=== PATIENT | male | born 1985 | race Caucasian/White ===

== ENCOUNTER 2020-08-06 14:35 | Inpatient (IN) | payer BC, OTHER ==
[~2020-08-06] VITALS: Ht 185.4 cm; Wt 101.7 kg
[2020-08-06 16:48] VITALS: BP 128/82
[2020-08-06] MEDS ORDERED: ESCI5TAB12 PO (17:01)
[2020-08-06] MEDS ORDERED: INDO20CA4 PO (17:01)
[2020-08-06] MEDS ORDERED: DOXY100C2 PO (17:01)
[2020-08-06] MEDS ORDERED: LEVO100T7 PO (17:01)
[2020-08-06] MEDS ORDERED: SLF500T PO (17:01)
[2020-08-06] MEDS ORDERED: PIPERACILLIN/TAZO 4.5 GM/NS 100 ML IV NR ×2 (17:15)
[2020-08-06] MEDS ORDERED: PATIENT MAY USE OWN MEDS, ALL MC SCH (17:15)
[2020-08-06] MEDS ORDERED: ACETAMINOPHEN 500 MG TAB (TYLENOL) PO PRN (17:30)
[2020-08-06] MEDS ORDERED: VANCOMYCIN 2000 MG/NS 500 ML IVPB IV NR ×2 (17:30)
[2020-08-06] MEDS ORDERED: VANCOMYCIN INJECTION 0.1 MG in NS (IVPB) 250 ML IV SCH (18:00)
[2020-08-06 18:19] LABS: BUN/CREATININE RATIO 22; CALCIUM 8.5 MG/DL (8.5-10.1); CARBON DIOXIDE 18 MMOL/L (21-32); CHLORIDE 106 MMOL/L (98-107); CREATININE SERUM 0.86 MG/DL (0.60-1.30); GFR ESTIMATED > 60; GLUCOSE 104 MG/DL (70-105); POTASSIUM 3.9 MMOL/L (3.6-5.0); SODIUM 136 MMOL/L (135-145)
--- NOTE | 2020-08-06 18:32 | NUR ---
CR 0.86; CR CL > 60; WT 101.7 KG; VANCO 2000 MG IV BOLUS THEN 1250 MG IV Q8H; TROUGH AFTER 3RD DOSE
[2020-08-06 19:37] VITALS: BP 136/42
[2020-08-06] MEDS: sulfaSALAzine 500 MG (AZULFIDINE) TAB PO SCH ×2 (21:23→21:30)
[2020-08-06] MEDS: INDOMETHACIN 50 MG CAPSULE PO SCH (21:23)
[2020-08-07] VITALS (7 sets, daily range): BP systolic 106–129; BP diastolic 56–75
[2020-08-07] MEDS: PIPERACILLIN/TAZOBACTAM (BULK) 4.5 GM in NS (IVPB) 100 ML IV SCH ×4 (00:03→23:45)
[2020-08-07] MEDS: VANCOMYCIN 1250 MG/NS 250 ML IVPB IV SCH ×6 (02:21→18:05)
[2020-08-07] MEDS: LEVOTHYROXINE 100 MCG (LEVOTHROID) TAB PO SCH (05:20)
[2020-08-07] MEDS: sulfaSALAzine 500 MG (AZULFIDINE) TAB PO SCH (07:56)
[2020-08-07] MEDS: INDOMETHACIN 50 MG CAPSULE PO SCH ×3 (07:56→18:06)
[2020-08-07] MEDS: ESCITALOPRAM 10 MG TAB PO SCH (08:02)
--- NOTE | 2020-08-07 08:41 | History & Physical-Hospitalist ---
History of Present Illness HPI/Chief Complaint Kiet presented to the clinic due to concerns related to concerns of a possible insect bite to his right thumb. He had went on vacation and upon returning home he was doing yard work and felt like he got a but bite on 08/03/20. It was initially pruritic but denied pain. On 08/05/20 he noted that the bite had changed in appearance and was no longer prurutic but was painful with surrounding erythema. he also noted white pustules and had a subjective fever that NOC. He was diagnosed with cellulitis with ascending lymphangitis and started on Doxycyline. He was also told to hold his Cosentyx injection until resolved. He returned to the clinic the next day with worsening lymphangitis and axillary lymphadenopathy and pain. He also had a fever of 99.0 in the office but denied chills or rigors. Date Seen 08/07/20 Time Seen by a Provider: 14:00 Attending Physician Bryant Alvarez MD PCP Referring Physician Date of Admission Aug 06, 2020 at 16:14 Home Medications & Allergies Home Medications Reviewed patient Home Medication Reconciliation performed by pharmacy medication reconciliations flight technician and/or nursing. Patients Allergies have been reviewed. Allergies Allergies Coded Allergies No Known Drug Allergies (Unverified08/06/20) Past [id number]-Dwzskh Hx Past Med/Social Hx: Reviewed and Corrections made Patient Social History Marrital Status: Employed/Student: employed Alcohol Use: Denies Use Recreational Drug Use: No Smoking Status: Never a Smoker Physical Abuse Screen: No Sexual Abuse: No Recent Foreign Travel: No Contact w/other who traveled: No Recent Hopitalizations: No Recent Infectious Disease Expo: No Immunizations Up To Date Pediatric: Yes Seasonal Allergies Seasonal Allergies: Yes Past Medical History Currently Using CPAP: No Currently Using BIPAP: No Loss of Vision: Denies Hearing Impairment: Denies Psychosocial: Anxiety Skin/Integumentary: Psoriasis History of Blood Disorders: No Adverse Reaction to Blood Joseph: No Family History Lupus 19 MOTHER Review of Systems Constitutional: see HPI Physical Exam Physical Exam Vital Signs Capillary Refill : Less Than 3 Seconds Height, Weight, BMI Height: '" Weight: lbs. oz. kg; 28.10 BMI Method: General Appearance: No Apparent Distress Eyes: Bilateral Eye Normal Inspection Neck: Normal Inspection, Non Tender, Supple Respiratory: Lungs Clear, Normal Breath Sounds, No Respiratory Distress Cardiovascular: Regular Rate, Rhythm, No Edema, Normal Peripheral Pulses Gastrointestinal: Normal Bowel Sounds, Non Tender, Soft Rectal: Deferred Extremity: Normal Capillary Refill, Normal Inspection, Normal Range of Motion, Non Tender, No Calf Tenderness, No Pedal Edema, Inflammation, Swelling, Other (right thumb with 1cm pustule to MCP, surrounding erythema) Neurologic/Psychiatric: Alert, Oriented x3, No Motor/Sensory Deficits, Normal Mood/Affect, product planner II-XII Norm as Tested Skin: Erythema Lymphatic: Axilla Node Tender (R) Results Results/Procedures Labs Patient resulted labs reviewed. Assessment/Plan Admission Diagnosis 1. Right upper extremity cellulitis with ascending lymphangitis. 2. Failure of outpatient antibiotics. 3. Psoriasis with psoriatic arthritis continue indomethacin and sulfasalazine. Patient was scheduled for Cosentyx earlier this week but medication was held due to infection. Admission Status: Inpatient Order (span 2 midnights) Reason for Inpatient Admission: see admission diagnosis Clinical Quality Measures DVT/VTE Risk/Contraindication: Risk Factor Score Per Nursin RFS Level Per Nursing on Admit: 1=Low/No VTE PPX BRYANT ALVARZE MD Aug 07, 2020 08:40
[2020-08-07 09:03] LABS: BASOPHILS % (AUTO) 0 % (0-10); EOSINOPHILS # (AUTO) 0.1 10^3/uL (0.0-0.3); EOSINOPHILS % (AUTO) 6 % (0-10); HEMATOCRIT 33 % (40-54); HEMOGLOBIN 10.7 G/DL (13.3-17.7); LYMPHOCYTES # (AUTO) 0.7 X 10^3 (1.0-4.0); LYMPHOCYTES % (AUTO) 76 % (12-44); MEAN CORPUSCULAR HEMOGLOBIN 29 PG (25-34); MEAN CORPUSCULAR HGB CONC 33 G/DL (32-36); MEAN CORPUSCULAR VOLUME 90 FL (80-99); MEAN PLATELET VOLUME 8.5 FL (7.4-10.4); MONOCYTES # (AUTO) 0.1 X 10^3 (0.0-1.0); MONOCYTES % (AUTO) 15 % (0-12); NEUTROPHILS % (AUTO) 3 % (42-75); PLATELET COUNT 184 10^3/uL (130-400)
[2020-08-07 09:10] LABS: WHITE BLOOD COUNT 0.9 10^3/uL (4.3-11.0)
--- NOTE | 2020-08-07 10:00 | NUR ---
Dr. Escobar notified of critical lab, white blood cell count 0.9, no new orders at this time.
--- NOTE | 2020-08-07 10:34 | Progress Note - Hospitalist ---
Subjective HPI/CC On Admission Date Seen by Provider: Aug 07, 2020 Time Seen by Provider: 10:33 Subjective/Events-last exam Pt reports doing well. Skin still sensitive to touch but redness improving. Still some edema. Objective Exam Vital Signs Vital Signs Date Time Temp Pulse Resp B/P (MAP) Pulse Ox O2 Delivery O2 Flow Rate FiO2 08/07/20 20:39 36.6 83 18 124/75 (91) 99 Room Air Capillary Refill : Less Than 3 Seconds General Appearance: No Apparent Distress, WD/WN Respiratory: No Accessory Muscle Use, No Respiratory Distress Extremity: Other (right hand) Neurologic/Psychiatric: Alert, Oriented x3, Normal Mood/Affect Results/Procedures Lab Laboratory Tests 08/07/20 08:50 Patient resulted labs reviewed. Assessment/Plan Assessment and Plan Assess & Plan/Chief Complaint 1. Right upper extremity cellulitis with ascending lymphangitis- continue on IV abx, continue broad spectrum given immunesuppressant use 2. Failure of outpatient antibiotics 3. Psoriasis with psoriatic arthritis continue indomethacin and sulfasalazine. Patient was scheduled for Cosentyx, will continue to hold 4. Leukopenia- Will confer with Dr Escobar for a baseline 5. Hypothyroidims- continue home meds Diagnosis/Problems Diagnosis/Problems (1) Right arm cellulitis Clinical Quality Measures DVT/VTE Risk/Contraindication: Risk Factor Score Per Nursin RFS Level Per Nursing on Admit: 1=Low/No VTE PPX HOLLY ANN MD Aug 07, 2020 10:34
[2020-08-07] MEDS ORDERED: CETI10TA49 PO (15:16)
[2020-08-07] MEDS ORDERED: SECU150P SC (15:16)
[2020-08-07] MEDS ORDERED: FLUT9.9S NS (15:16)
[2020-08-07] MEDS ORDERED: INDO50CA82 PO (15:16)
[2020-08-07] MEDS ORDERED: ESCI10TA55 PO (15:16)
[2020-08-07] MEDS ORDERED: MUPI22OI2 TOP (15:16)
--- NOTE | 2020-08-07 15:20 | NUR ---
SPOKE WITH THE PT AND WENT THRU THE EXT MED HISTORY TO COMPLETE THE MED REC PT IS NO LONGER TAKING LOSARTAN 100MG (LAST FILLED 03-27-2020 #90) OTC MEDS: ZYRTEC TONYE
[2020-08-07] MEDS ORDERED: TROUGH ORDER-PHARMACY XX NR (17:00)
[2020-08-07] MEDS: MICONAZOLE 2% POWDER (DESENEX AF) 90 GM TOP SCH (19:35)
[2020-08-08] MEDS: VANCOMYCIN 1250 MG/NS 250 ML IVPB IV SCH ×6 (01:47→18:56)
[2020-08-08 05:46] LABS: BASOPHILS % (AUTO) 1 % (0-10); EOSINOPHILS # (AUTO) 0.1 10^3/uL (0.0-0.3); EOSINOPHILS % (AUTO) 6 % (0-10); HEMATOCRIT 32 % (40-54); HEMOGLOBIN 10.3 G/DL (13.3-17.7); LYMPHOCYTES # (AUTO) 1.1 X 10^3 (1.0-4.0); LYMPHOCYTES % (AUTO) 59 % (12-44); MEAN CORPUSCULAR HEMOGLOBIN 29 PG (25-34); MEAN CORPUSCULAR HGB CONC 32 G/DL (32-36); MEAN CORPUSCULAR VOLUME 90 FL (80-99); MEAN PLATELET VOLUME 8.5 FL (7.4-10.4); MONOCYTES # (AUTO) 0.4 X 10^3 (0.0-1.0); MONOCYTES % (AUTO) 22 % (0-12); NEUTROPHILS # (AUTO) 0.2 X 10^3 (1.8-7.8); NEUTROPHILS % (AUTO) 12 % (42-75); PLATELET COUNT 233 10^3/uL (130-400); WHITE BLOOD COUNT 1.8 10^3/uL (4.3-11.0)
[2020-08-08] MEDS: LEVOTHYROXINE 100 MCG (LEVOTHROID) TAB PO SCH (06:15)
[2020-08-08 06:58] LABS: ATYPICAL LYMPHOCYTES 4 %; BAND NEUTROPHILS 4 %; BLAST CELLS 4 %; EOSINOPHILS % (MANUAL) 4 %; LYMPHOCYTES % (MANUAL) 64 %; MONOCYTES % (MANUAL) 16 %; NEUTROPHILS % (MANUAL) 8 %
[2020-08-08 06:59] LABS: ANISOCYTOSIS SLIGHT; HYPOCHROMASIA MODERATE; ROULEAUX SLIGHT
[2020-08-08 08:00] VITALS: BP 119/65
[2020-08-08] MEDS: PIPERACILLIN/TAZOBACTAM (BULK) 4.5 GM in NS (IVPB) 100 ML IV SCH ×3 (08:16→23:52)
[2020-08-08] MEDS: ESCITALOPRAM 10 MG TAB PO SCH (08:17)
[2020-08-08] MEDS: INDOMETHACIN 50 MG CAPSULE PO SCH ×3 (08:17→18:56)
[2020-08-08] MEDS: MICONAZOLE 2% POWDER (DESENEX AF) 90 GM TOP SCH ×2 (10:45→21:07)
--- NOTE | 2020-08-08 11:21 | Progress Note - Hospitalist ---
Subjective HPI/CC On Admission Date Seen by Provider: Aug 08, 2020 Time Seen by Provider: 11:14 Subjective/Events-last exam Patient reports doing ok but having more swelling in his hand today. Erythema of the arm has improved. Objective Exam Vital Signs Vital Signs Date Time Temp Pulse Resp B/P (MAP) Pulse Ox O2 Delivery O2 Flow Rate FiO2 08/08/20 08:00 36.4 75 18 119/65 (83) 99 Room Air Capillary Refill : Less Than 3 Seconds General Appearance: No Apparent Distress, WD/WN Respiratory: No Accessory Muscle Use, No Respiratory Distress Extremity: Other (worsening edema and erythema of the thenar aspect of posterior hand, no drainage) Neurologic/Psychiatric: Alert, Oriented x3, Normal Mood/Affect Results/Procedures Lab Laboratory Tests 08/08/20 05:37 Patient resulted labs reviewed. Assessment/Plan Assessment and Plan Assess & Plan/Chief Complaint 1. Right upper extremity cellulitis with ascending lymphangitis- continue on IV abx, continue broad spectrum given immunesuppressant use; concerned that abscessed has formed. Consulted surgery to evaluate for possible abscess 2. Failure of outpatient antibiotics 3. Psoriasis with psoriatic arthritis continue indomethacin. Patient was scheduled for Cosentyx, will continue to hold 4. Leukopenia- baseline a few months ago was 3.5, up to 1.9 today, continue to hold Cosentyx and sulfasazine 5. Hypothyroidism- continue home meds Diagnosis/Problems Diagnosis/Problems (1) Right arm cellulitis Status: Acute Clinical Quality Measures DVT/VTE Risk/Contraindication: Risk Factor Score Per Nursin RFS Level Per Nursing on Admit: 1=Low/No VTE PPX HOLLY ANN MD Aug 08, 2020 11:21
[2020-08-08] MEDS ORDERED: LIDOCAINE 1% INJ 20 ML 20 ML VIAL INJ ONE (11:30)
[2020-08-08] MEDS ORDERED: fentaNYL INJECTION 100 MCG/2 ML AMP ONE (11:32)
[2020-08-08] MEDS ORDERED: fentaNYL INJECTION 100 MCG/2 ML AMP IVP PRN ×2 (11:45→12:15)
--- NOTE | 2020-08-08 12:31 | CONSULTATION REPORT ---
DATE OF SERVICE: 08/08/2020 ATTENDING PRIMARY CARE PHYSICIAN: Dr. Speedy Escobar. HISTORY OF PRESENT ILLNESS: The patient is a 34-year-old male who presents with a classic case of a brown recluse spider bite. He reports that approximately 1 week ago, [place] and went to attend to his daughter and then he felt an area of slight redness and erythema along the dorsal aspect of the right hand close to the first metacarpophalangeal joint. He did not think much of it; however, this was significantly pruritic. He states that a blister draining a small amount of drainage then did develop and he also developed fevers and chills and he was seen by his physician and started on oral antibiotics; however, this persisted and was again seen and admitted and started on IV antibiotics. Since being admitted, he has had a slight worsening of redness, erythema along the dorsal aspect as well as a fluctuance, which may indicate an abscess formation as well as the possibility of the effects of the liquefactive necrosis from the recluse venom. Upon examination, there is redness, erythema as well as fluctuance overlying the dorsal aspect of the thenar eminence. PAST MEDICAL HISTORY: Plaque psoriasis. PAST SURGICAL HISTORY: Laparoscopic cholecystectomy, tonsillectomy. ALLERGIES: No known drug allergies. MEDICATIONS: Cosentyx monthly. SOCIAL HISTORY: Negative smoke, negative alcohol. FAMILY HISTORY: Noncontributory. REVIEW OF SYSTEMS: Well-nourished male in no acute distress. He is not experiencing any shortness of breath or difficulty breathing. No chest pain, palpitations, diaphoresis. No nausea or vomiting. No diarrhea or constipation. No fever or chills. No recent inadvertent weight loss. All other review of systems negative. PHYSICAL EXAMINATION: VITAL SIGNS: Temperature 36.4, blood pressure 119/65, pulse 75, respirations 18, pulse ox 99% on room air. CHEST: Clear. Good breath sounds bilaterally. HEART: Regular, no murmurs. EXTREMITIES: No lower extremity edema, negative Homans sign. HEENT: No scleral icterus. NECK: No cervical lymphadenopathy. ABDOMEN: Soft, nontender, nondistended. SKIN: Along the right dorsal aspect of the right hand, there is an area of dry necrosis as well as redness, edema as well as an area of fluctuance along the dorsal aspect of the hand along the first metacarpal region. ASSESSMENT AND PLAN: A 34-year-old male with abscess secondary to a brown recluse spider bite. We will proceed with an incision and drainage of the abscess as well as continue IV antibiotics to treat the effects of the secondary bacterial infection. Job ID: [id number] DocumentID: [id number] Dictated Date: 08/08/2020 12:13:41 Rfid Developer Date: 08/08/2020 12:30:05 Dictated By: GRACE COOPER MD MTDD
[2020-08-08] MEDS: HYDROcodone/APAP 7.5 MG/325 MG (LORTAB, LORCET PLUS) TABLET PO PRN ×2 (15:49→21:07)
[2020-08-08 16:00] VITALS: BP 116/76
[2020-08-08 19:52] VITALS: BP 113/69
[2020-08-09] VITALS: BP 116/67
--- NOTE | 2020-08-09 00:12 | OPERATIVE REPORT ---
DATE OF SERVICE: 08/08/2020 ATTENDING PRIMARY CARE PHYSICIAN: Dr. Speedy Escobar. PREOPERATIVE DIAGNOSIS: Cellulitis and abscess along the dorsal aspect of the right hand. POSTOPERATIVE DIAGNOSIS: Cellulitis and abscess along the dorsal aspect of the right hand. PROCEDURE: Incision and drainage of abscess, left hand. SURGEON: Grace Cooper MD. ANESTHESIA: Local. ESTIMATED BLOOD LOSS: Minimal. FINDINGS: Necrotic subcutaneous tissue with a significant amount of edema, small abscess. DISPOSITION: The patient tolerated the procedure well. INDICATIONS: The patient is a 34-year-old male who presented with a brown recluse spider bite along the dorsal aspect of the right hand along the first metacarpophalangeal joint. He described the liquefactive necrosis and then eventual fevers and chills and was admitted and placed on IV antibiotics. Since being admitted, there has been increased redness, erythema as well as swelling and fluctuance overlying the dorsal aspect of the right hand, likely consistent with an abscess. DESCRIPTION OF PROCEDURE: The patient's right hand was prepped and draped in standard surgical fashion. 1% lidocaine was used to anesthetize the overlying skin to the abscess. A sigmoid skin incision was then made using a 10 blade through the subcutaneous layers. There was a small abscess; however, the majority of the subcutaneous tissue within the region was slightly necrotic. This was left open to drain. Wound was then packed with sterile gauze followed by Tanya wrap. The patient tolerated the procedure well. We will continue with packing and dressing change starting tomorrow and continue with IV antibiotics. Job ID: [id number] DocumentID: [id number] Dictated Date: 08/08/2020 12:17:03 Personal Property Assessor Date: 08/09/2020 00:11:49 Dictated By: GRACE COOPER MD [facility]
--- NOTE | 2020-08-09 00:51 | CONSULTATION REPORT ---
DATE OF SERVICE: 08/08/2020 The patient is admitted to room 418. PHYSICIAN REQUESTING CONSULTATION: Jazzy King MD IMPRESSION: 1. A 34-year-old male admitted with febrile illness and right hand cellulitis that was not responding to outpatient antibiotic therapy. 2. Significant leukopenia and neutropenia of undetermined etiology. 3. Probable brown recluse spider bite with the central necrosis, status post incision and drainage today. 4. History of significant plaque psoriasis and psoriatic arthritis, on treatment with sulfasalazine and Cosentyx. RECOMMENDATIONS: 1. Continue broad-spectrum antibiotics as you are doing. 2. Monitor blood count serially. His leukocyte count and neutrophil count has improved compared to yesterday. He has mild anemia and hemoglobin is holding stable. If there is evidence of hemolytic anemia, he will need transfusion support. Hemolytic anemia is unknown, but rare complication of brown recluse spider bite. 3. We will follow the patient with you. HISTORY OF PRESENT ILLNESS: The patient is a 34-year-old male, who complained of an insect bite last week while [place]. During his visit, he did go into a shed looking at and other less frequented areas of the house. Later on that evening, he complained of itching on the right hand. By the next day, he noticed a red area with 2 puncture [place] on the right hand that was pruritic. By Tuesday evening, he was having chills and fever and saw his primary physician and was started on oral antibiotic on an outpatient basis. He continued to have fevers and chills intermittently, which was worsening and reddish streaks were noted on the right hand and forearm extending into the arm. Because of this, he was admitted to the hospital for parenteral antibiotic therapy and further management. At the time of admission, he was noted to have significant leukopenia and neutropenia and a hematology consultation was requested. PAST MEDICAL HISTORY: Significant for plaque psoriasis, which is fairly significant. He was treated with multiple immunosuppressive agents including Humira and more recently Cosentyx, which was being used for several years now. He was due for a dose earlier this week, but this was held because of the febrile illness. He also has psoriatic arthritis involving his hands. PAST SURGICAL HISTORY: Include a tonsillectomy and adenoidectomy in childhood and the laparoscopic cholecystectomy. ALLERGIES: He has no known drug allergies. MEDICATIONS: Cosentyx monthly. SOCIAL HISTORY: The patient is and has a 1-year biological son and they just adopted 4 children ranging in age from 7 through 2 years within the last month. He lives in [place] with his and children. 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 No history of tobacco, alcohol or recreational drug use. FAMILY HISTORY: Unremarkable with no major medical problems in the family that the patient knows of. PHYSICAL EXAMINATION: GENERAL: Today showed young male, well developed and nourished, awake and oriented, in no acute distress. VITAL SIGNS: His temperature was 36.8, pulse rate of 82, respirations 20, blood pressure 116/76 with oxygen saturation of 97% on room air. HEENT: Normocephalic, extraocular muscles intact, conjunctivae pink, oral mucosa moist without lesions. NECK: Supple, with no JVD. No cervical or supraclavicular lymphadenopathy palpable. The patient had tenderness in the right axilla with a borderline enlarged lymph nodes. CHEST: Symmetrical. LUNGS: Clear to auscultation without wheezes or rales. CARDIOVASCULAR: Regular in rate and rhythm without murmurs or gallops. ABDOMEN: Soft, nontender with no hepatosplenomegaly or other masses palpable. EXTREMITIES: Showed a right hand in dressing with the serosanguineous drainage. There are reddish streaks along the ventral aspect of right forearm into the axilla, the borders of which have been marked with a pen. Lower extremities showed no edema. NEUROLOGIC: Grossly intact without focal motor deficits. LABORATORY DATA: CBC done on 08/07/2020 showed WBC 0.9, hemoglobin 10.7, platelet count 184,000 with neutrophil count 0.0 and lymphocyte count 0.7. CBC repeated today morning showed WBC 1.8, hemoglobin 10.3 with MCV 90, platelet count 233,000 and neutrophil count 0.2, lymphocyte count 1.1 and monocyte count 0.4. I reviewed the peripheral smear done today, which showed a decreased white blood cell count. Neutrophils appeared unremarkable morphologically and has toxic granulation. No immature cells were identified. The red blood cells appeared normal morphologically with no significant schistocytes noted. Platelets were normal in number and morphology. Chemistry panel done yesterday showed relatively normal electrolytes. BUN was 19 and creatinine 0.86 with GFR more than 60 mL per minute. Thank you for allowing me to participate in this patient's care. I will follow the patient with you and make appropriate recommendations. Job ID: [id number] DocumentID: [id number] Dictated Date: 08/08/2020 17:18:36 Panel Instrument Repairer Date: 08/09/2020 00:51:30 Dictated By: TY TORRES MD
[2020-08-09] MEDS: VANCOMYCIN 1250 MG/NS 250 ML IVPB IV SCH ×4 (02:35→09:35)
[2020-08-09] MEDS: LEVOTHYROXINE 100 MCG (LEVOTHROID) TAB PO SCH (06:27)
[2020-08-09 07:48] VITALS: BP 118/74
[2020-08-09] MEDS: PIPERACILLIN/TAZOBACTAM (BULK) 4.5 GM in NS (IVPB) 100 ML IV SCH (08:00)
[2020-08-09] MEDS: INDOMETHACIN 50 MG CAPSULE PO SCH ×3 (08:00→17:32)
[2020-08-09] MEDS: ESCITALOPRAM 10 MG TAB PO SCH (09:35)
[2020-08-09] MEDS: MICONAZOLE 2% POWDER (DESENEX AF) 90 GM TOP SCH ×2 (09:35→20:21)
[2020-08-09 10:09] LABS: BASOPHILS % (AUTO) 1 % (0-10); EOSINOPHILS # (AUTO) 0.1 10^3/uL (0.0-0.3); EOSINOPHILS % (AUTO) 4 % (0-10); HEMATOCRIT 31 % (40-54); HEMOGLOBIN 9.9 G/DL (13.3-17.7); LYMPHOCYTES # (AUTO) 0.8 X 10^3 (1.0-4.0); LYMPHOCYTES % (AUTO) 30 % (12-44); MEAN CORPUSCULAR HEMOGLOBIN 29 PG (25-34); MEAN CORPUSCULAR HGB CONC 32 G/DL (32-36); MEAN CORPUSCULAR VOLUME 90 FL (80-99); MEAN PLATELET VOLUME 9.1 FL (7.4-10.4); MONOCYTES # (AUTO) 0.5 X 10^3 (0.0-1.0); MONOCYTES % (AUTO) 20 % (0-12); NEUTROPHILS # (AUTO) 1.2 X 10^3 (1.8-7.8); NEUTROPHILS % (AUTO) 46 % (42-75); PLATELET COUNT 283 10^3/uL (130-400); WHITE BLOOD COUNT 2.7 10^3/uL (4.3-11.0)
--- NOTE | 2020-08-09 11:02 | Progress Note - Hospitalist ---
Subjective HPI/CC On Admission Date Seen by Provider: Aug 09, 2020 Time Seen by Provider: 10:56 Subjective/Events-last exam patient reports decreased hand and right axillary pain. He can move his arm without any axillary discomfort. He denies night sweats chills or fever. Objective Exam Vital Signs Vital Signs Date Time Temp Pulse Resp B/P (MAP) Pulse Ox O2 Delivery O2 Flow Rate FiO2 08/09/20 08:00 Room Air 08/09/20 07:48 36.3 58 18 118/74 (89) 97 Capillary Refill : Less Than 3 Seconds General Appearance: No Apparent Distress Respiratory: Chest Non Tender, Lungs Clear, Normal Breath Sounds, No Accessory Muscle Use, No Respiratory Distress Cardiovascular: Regular Rate, Rhythm, No Edema, No Gallop, No JVD, No Murmur, Normal Peripheral Pulses Extremity: Other (right hand swelling persists but there is resolution of erythema involving the forearm and upper arm. There are still some mild axillary tenderness and fullness but no evidence for abscess and the patient can move the arm with minimal discomfort and improvement from yesterday) Results/Procedures Lab Laboratory Tests 08/09/20 09:23 Patient resulted labs reviewed. Assessment/Plan Assessment and Plan Assess & Plan/Chief Complaint A/P 1. Right hand cellulitis with ascending lymphangitis responding to broad spectrum antibiotic coverage. Office wound swab of a pustular area revealed moderate growth of Streptococcus pyogenes which is compatible with clinical picture. Doubt spider bite. 2. Neutropenia possibly sulfasalazine related we'll continue to hold neutropenia secondary to infection possible as well white count is recovering with ANC count up to 1.2 thousand and no reported increase in blasts makes leukemia less likely we'll continue to monitor daily counts. Will switch to IV Ancef considering number 1. Clinical Quality Measures DVT/VTE Risk/Contraindication: Risk Factor Score Per Nursin RFS Level Per Nursing on Admit: 1=Low/No VTE PPX BRYANT ALVAREZ MD Aug 09, 2020 11:02
[2020-08-09] MEDS: HYDROcodone/APAP 7.5 MG/325 MG (LORTAB, LORCET PLUS) TABLET PO PRN ×2 (11:17→23:19)
[2020-08-09 11:27] LABS: BAND NEUTROPHILS 0 %; BASOPHILS % (MANUAL) 0 %; EOSINOPHILS % (MANUAL) 6 %; LYMPHOCYTES % (MANUAL) 32 %; MONOCYTES % (MANUAL) 22 %; NEUTROPHILS % (MANUAL) 40 %; RBC MORPH NORMAL
--- NOTE | 2020-08-09 12:00 | NUR ---
THIS RN NOTIFIED BY PCT THAT PT HAD REQUESTED TO SPEAK WITH DR. ALVAREZ ABOUT BEING ABLE TO GO DOWN TO THE PARKING LOT TO SEE HIS DOG BEFORE HIS DOG IS EUTHANIZED. THIS RN SPOKE WITH DR. ALVAREZ ABOUT THE MATTER AND DR. ALVAREZ STATED THAT THE PT IS ABLE TO SEE HIS DOG BEFORE EUTHANIZATION BUT TO REFRAIN FROM COMING INTO CONTACT FROM ANYBODY.
--- NOTE | 2020-08-09 12:07 | Progress Note ---
Subjective Date Seen by a Provider: Aug 09, 2020 Time Seen by a Provider: 11:00 Subjective/Events-last exam Patient seen with Dr. Reyes. Patient reports pain is better today. Denies any fever or chills. Tolerating diet with nausea or vomiting. Objective Exam Vital Signs Date Time Temp Pulse Resp B/P (MAP) Pulse Ox O2 Delivery O2 Flow Rate FiO2 08/09/20 08:00 Room Air 08/09/20 07:48 36.3 58 18 118/74 (89) 97 Room Air 08/09/20 00:00 36.5 66 18 116/67 (83) 97 Room Air 08/08/20 20:00 Room Air 08/08/20 19:52 36.4 78 18 113/69 (84) 97 Room Air 08/08/20 16:00 36.8 82 20 116/76 (89) 97 Room Air l I & O 08/09/20 07:00 Intake Total 2360 ml Balance 2360 ml Capillary Refill : Less Than 3 Seconds General Appearance: No Apparent Distress, WD/WN Neck: Full Range of Motion, Normal Inspection Respiratory: Normal Breath Sounds, No Accessory Muscle Use, No Respiratory Distress Cardiovascular: Regular Rate, Rhythm, No Edema Gastrointestinal: normal bowel sounds, non tender, soft Extremity: Normal Capillary Refill, Normal Range of Motion, Other (Right hand dorsal aspect open incision with good granulation tissue within wound bed. Mild localized erythema and edema, tender upon palpation) Neurologic/Psychiatric: Alert, Oriented x3 Skin: Normal Color, Warm/Dry Results Lab Laboratory Tests 08/09/20 09:23: White Blood Count 2.7L, Red Blood Count 3.39L, Hemoglobin 9.9L, Hematocrit 31L, Mean Corpuscular Volume 90, Mean Corpuscular Hemoglobin 29, Mean Corpuscular Hemoglobin Concent 32, Red Cell Distribution Width 13.3, Platelet Count 283, Mean Platelet Volume 9.1, Neutrophils (%) (Auto) 46, Lymphocytes (%) (Auto) 30, Monocytes (%) (Auto) 20H, Eosinophils (%) (Auto) 4, Basophils (%) (Auto) 1, Neutrophils # (Auto) 1.2L, Lymphocytes # (Auto) 0.8L, Monocytes # (Auto) 0.5, Eosinophils # (Auto) 0.1, Basophils # (Auto) 0.0, Neutrophils % (Manual) 40, Lymphocytes % (Manual) 32, Monocytes % (Manual) 22, Eosinophils % (Manual) 6, Basophils % (Manual) 0, Band Neutrophils 0, Blood Morphology Comment NORMAL Assessment/Plan Assessment/Plan Assess & Plan/Chief Complaint Right hand cellulitis and abscess S/P I&D VSS Continue abx and pain meds as needed Continue wet to dry daily dressing change Clinical Quality Measures DVT/VTE Risk/Contraindication: Risk Factor Score Per Nursin RFS Level Per Nursing on Admit: 1=Low/No VTE PPX NATACHA AMEZCUA PIPE CLEANER Aug 09, 2020 12:07
--- NOTE | 2020-08-09 12:37 | Progress Note ---
Standard Progress Note Progress Notes/Assess & Plan Date Seen by a Provider: Aug 09, 2020 Time Seen by a Provider: 12:34 Progress/Assessment & Plan 34-year-old male admitted with right hand insect bite causing cellulitis and failed outpatient antibiotic therapy. Status post I&D of necrotic tissue and parenteral antibiotic therapy. Left forearm streaks are better than yesterday. At the time of admission patient noted to have significant leukopenia and neutropenia of undetermined etiology. Today total white count is 2.7 with ANC of 1.2 which is a significant improvement. Hemoglobin and platelets normal. Continue IV antibiotics and surgical care as you're doing. Repeat CBC tomorrow morning. Will follow patient with you. TY TORRES Aug 09, 2020 12:36
[2020-08-09] MEDS ORDERED: WATER (STERILE) FOR INJECTION 10 ML ONE ×2 (15:03→23:12)
[2020-08-09] MEDS: ceFAZolin INJECTION 1,000 MG VIAL IV SCH ×2 (15:10→23:18)
[2020-08-09 15:30] VITALS: BP 132/58
[2020-08-10] VITALS: BP 131/80
[2020-08-10] MEDS: LEVOTHYROXINE 100 MCG (LEVOTHROID) TAB PO SCH (06:29)
[2020-08-10] MEDS: HYDROcodone/APAP 7.5 MG/325 MG (LORTAB, LORCET PLUS) TABLET PO PRN ×2 (06:32→23:41)
[2020-08-10 08:00] VITALS: BP 121/73
[2020-08-10] MEDS ORDERED: ceFAZolin 1,000 MG/SWFI 10 ML IV PUSH IV SCH ×2 (09:00)
[2020-08-10] MEDS: INDOMETHACIN 50 MG CAPSULE PO SCH ×3 (09:34→17:44)
[2020-08-10] MEDS: ESCITALOPRAM 10 MG TAB PO SCH (09:37)
[2020-08-10] MEDS: MICONAZOLE 2% POWDER (DESENEX AF) 90 GM TOP SCH ×2 (09:38→19:46)
[2020-08-10 10:46] LABS: BASOPHILS # (AUTO) 0.1 10^3/uL (0.0-0.1); BASOPHILS % (AUTO) 1 % (0-10); EOSINOPHILS # (AUTO) 0.1 10^3/uL (0.0-0.3); EOSINOPHILS % (AUTO) 2 % (0-10); HEMATOCRIT 33 % (40-54); HEMOGLOBIN 10.5 G/DL (13.3-17.7); LYMPHOCYTES % (AUTO) 21 % (12-44); MEAN CORPUSCULAR HEMOGLOBIN 29 PG (25-34); MEAN CORPUSCULAR HGB CONC 32 G/DL (32-36); MEAN CORPUSCULAR VOLUME 90 FL (80-99); MEAN PLATELET VOLUME 8.7 FL (7.4-10.4); MONOCYTES # (AUTO) 0.7 X 10^3 (0.0-1.0); MONOCYTES % (AUTO) 14 % (0-12); NEUTROPHILS # (AUTO) 2.9 X 10^3 (1.8-7.8); NEUTROPHILS % (AUTO) 62 % (42-75); PLATELET COUNT 321 10^3/uL (130-400); WHITE BLOOD COUNT 4.7 10^3/uL (4.3-11.0)
[2020-08-10 10:47] LABS: CHLORIDE 106 MMOL/L (98-107); SODIUM 138 MMOL/L (135-145)
[2020-08-10 10:49] LABS: CALCIUM 8.4 MG/DL (8.5-10.1); GLUCOSE 81 MG/DL (70-105)
[2020-08-10 10:50] LABS: CARBON DIOXIDE 23 MMOL/L (21-32)
[2020-08-10 10:53] LABS: CREATININE SERUM 0.96 MG/DL (0.60-1.30); GFR ESTIMATED > 60
[2020-08-10 10:54] LABS: BUN/CREATININE RATIO 16
[2020-08-10 11:37] LABS: BAND NEUTROPHILS 15 %; BASOPHILS % (MANUAL) 0 %; EOSINOPHILS % (MANUAL) 2 %; LYMPHOCYTES % (MANUAL) 19 %; MONOCYTES % (MANUAL) 21 %; NEUTROPHILS % (MANUAL) 36 %
[2020-08-10 11:38] LABS: METAMYELOCYTES % 7 %; RBC MORPH NORMAL
--- NOTE | 2020-08-10 12:26 | Progress Note - Hospitalist ---
Subjective HPI/CC On Admission Date Seen by Provider: Aug 10, 2020 Time Seen by Provider: 12:21 Subjective/Events-last exam patient reports he's not feeling as well today some increase forearm pain and erythema. He denies any axillary pain denies night sweats chills or fever notes a little more throbbing when his right hand is dependent. There is been no bleeding or drainage soaking through the Bandage. Objective Exam Vital Signs Vital Signs Date Time Temp Pulse Resp B/P (MAP) Pulse Ox O2 Delivery O2 Flow Rate FiO2 08/10/20 08:00 36.3 75 20 121/73 (89) 94 Room Air Capillary Refill : Less Than 3 SecondsLess Than 3 Seconds General Appearance: No Apparent Distress Respiratory: Chest Non Tender, Lungs Clear, Normal Breath Sounds, No Accessory Muscle Use, No Respiratory Distress Cardiovascular: Regular Rate, Rhythm, No Edema, No Gallop, No JVD, No Murmur, Normal Peripheral Pulses Extremity: Other (the open hand wound looks clean with no drainage and no significant surrounding erythema or induration. There is increased erythema and swelling of the right forearm with no streaking going up the arm and less axillary pain.) Results/Procedures Lab Laboratory Tests 08/10/20 10:25 Patient resulted labs reviewed. Assessment/Plan Assessment and Plan Assess & Plan/Chief Complaint A/P 1. Right hand cellulitis with ascending lymphangitis after switch to Ancef there is increased erythema in the forearm the patient for she's not feeling as well. His white counts are recovering and up to 4.5 thousand and I suspect this may be the reason however will switch back to Zosyn and DC Ancef. Office wound swab of a pustular area revealed moderate growth of Streptococcus pyogenes which is compatible with clinical picture. Doubt spider bite. 2. Neutropenia resolving after discussion with Dr. Fleming he feels that infection is more likely cause and sulfasalazine will have her continue to hold. Clinical Quality Measures DVT/VTE Risk/Contraindication: Risk Factor Score Per Nursin RFS Level Per Nursing on Admit: 1=Low/No VTE PPX BRYANT ALVAREZ MD Aug 10, 2020 12:26
[2020-08-10] MEDS ORDERED: PIPERACILLIN/TAZOBACTAM (BULK) 4.5 GM in NS (IVPB) 100 ML IV NR (13:00)
[2020-08-10] MEDS ORDERED: KETOROLAC 30 MG/ML VIAL IVP ONE (13:15)
[2020-08-10] MEDS ORDERED: IBUPROFEN 600 MG (MOTRIN) TAB PO PRN (13:15)
--- NOTE | 2020-08-10 13:27 | Progress Note ---
Subjective Date Seen by a Provider: Aug 10, 2020 Time Seen by a Provider: 13:00 Subjective/Events-last exam doing better. wound clean/intact. no new area redness/erythema. no fever/chills. Objective Exam Vital Signs Date Time Temp Pulse Resp B/P (MAP) Pulse Ox O2 Delivery O2 Flow Rate FiO2 08/10/20 08:00 36.3 75 20 121/73 (89) 94 Room Air 08/10/20 08:00 94 Room Air 08/10/20 00:00 36.9 64 18 131/80 (97) 95 Room Air 08/09/20 20:00 Room Air 08/09/20 15:30 36.6 61 18 132/58 (82) 98 Room Air I & O 08/10/20 07:00 Intake Total 1802.5 ml Balance 1802.5 ml Capillary Refill : Less Than 3 SecondsLess Than 3 Seconds General Appearance: No Apparent Distress HEENT: PERRL/EOMI Neck: Full Range of Motion Respiratory: Chest Non Tender, Lungs Clear, Normal Breath Sounds Cardiovascular: Regular Rate, Rhythm Gastrointestinal: normal bowel sounds, non tender, soft Extremity: Normal Capillary Refill, Other (right hand good granulation bed, no new area/redness) Neurologic/Psychiatric: Alert, Oriented x3 Skin: Normal Color Lymphatic: No Adenopathy Results Lab Laboratory Tests 08/10/20 10:25: White Blood Count 4.7, Red Blood Count 3.61L, Hemoglobin 10.5L, Hematocrit 33L, Mean Corpuscular Volume 90, Mean Corpuscular Hemoglobin 29, Mean Corpuscular Hemoglobin Concent 32, Red Cell Distribution Width 13.3, Platelet Count 321, Mean Platelet Volume 8.7, Neutrophils (%) (Auto) 62, Lymphocytes (%) (Auto) 21, Monocytes (%) (Auto) 14H, Eosinophils (%) (Auto) 2, Basophils (%) (Auto) 1, Neutrophils # (Auto) 2.9, Lymphocytes # (Auto) 1.0, Monocytes # (Auto) 0.7, Eosinophils # (Auto) 0.1, Basophils # (Auto) 0.1, Neutrophils % (Manual) 36, Lymphocytes % (Manual) 19, Monocytes % (Manual) 21, Eosinophils % (Manual) 2, Basophils % (Manual) 0, Metamyelocytes % 7, Band Neutrophils 15, Blood Morphology Comment NORMAL, Sodium Level 138, Potassium Level 4.0, Chloride Level 106, Carbon Dioxide Level 23, Anion Gap 9, Blood Urea Nitrogen 15, Creatinine 0.96, Estimat Glomerular Filtration Rate > 60, BUN/Creatinine Ratio 16, Glucose Level 81, Calcium Level 8.4L Assessment/Plan Assessment/Plan Assess & Plan/Chief Complaint cellulitis/skin necrosis s/p I&D. neutropenic from cosyntyx. will be on IV abx until . Clinical Quality Measures DVT/VTE Risk/Contraindication: Risk Factor Score Per Nursin RFS Level Per Nursing on Admit: 1=Low/No VTE PPX GRACE COOPER MD Aug 10, 2020 13:27
[2020-08-10 16:22] VITALS: BP 137/89
[2020-08-10] MEDS: PIPERACILLIN/TAZO 4.5 GM/NS 100 ML IV SCH ×2 (19:46)
[2020-08-11] VITALS: BP 138/88
[2020-08-11] MEDS: PIPERACILLIN/TAZO 4.5 GM/NS 100 ML IV SCH ×6 (04:12→19:52)
[2020-08-11] MEDS: LEVOTHYROXINE 100 MCG (LEVOTHROID) TAB PO SCH (06:22)
[2020-08-11 08:00] VITALS: BP 118/67
--- NOTE | 2020-08-11 08:45 | Progress Note - Hospitalist ---
Subjective HPI/CC On Admission Date Seen by Provider: Aug 11, 2020 Time Seen by Provider: 08:15 Subjective/Events-last exam patient feeling better less arm pain and denies night sweats chills or fever. Objective Exam Vital Signs Vital Signs Date Time Temp Pulse Resp B/P (MAP) Pulse Ox O2 Delivery O2 Flow Rate FiO2 08/11/20 00:00 36.8 56 18 138/88 (105) 97 Room Air Capillary Refill : Less Than 3 SecondsLess Than 3 Seconds General Appearance: No Apparent Distress Respiratory: Chest Non Tender, Lungs Clear, Normal Breath Sounds, No Accessory Muscle Use, No Respiratory Distress Cardiovascular: Regular Rate, Rhythm, No Edema, No Gallop, No JVD, No Murmur, Normal Peripheral Pulses Extremity: Other (decreasing erythema of the right forearm compared to no axillary adenopathy noted minimal discomfort to palpation of the axilla no drainage noted on hand bandage) Results/Procedures Lab Laboratory Tests 08/10/20 10:25 Patient resulted labs reviewed. Assessment/Plan Assessment and Plan Assess & Plan/Chief Complaint A/P 1. Right hand cellulitis with ascending lymphangitis after switch to Ancef there is increased erythema in the forearm the patient for he's not feeling as well. for this reason yesterday he was switched back to Zosyn and doing better. White count pending. For continued improvements will likely plan discharge on Augmentin tomorrow. Doubt spider bite. 2. Neutropenia resolving after discussion with Dr. Fleming he feels that infection is more likely cause than sulfasalazine will continue to hold for now. Clinical Quality Measures DVT/VTE Risk/Contraindication: Risk Factor Score Per Nursin RFS Level Per Nursing on Admit: 1=Low/No VTE PPX BRYANT ALVAREZ MD Aug 11, 2020 08:45
[2020-08-11] MEDS: MICONAZOLE 2% POWDER (DESENEX AF) 90 GM TOP SCH ×2 (09:21→19:52)
[2020-08-11] MEDS: INDOMETHACIN 50 MG CAPSULE PO SCH ×3 (09:21→17:45)
[2020-08-11] MEDS: ESCITALOPRAM 10 MG TAB PO SCH (09:21)
[2020-08-11 09:45] LABS: BASOPHILS # (AUTO) 0.1 10^3/uL (0.0-0.1); BASOPHILS % (AUTO) 2 % (0-10); EOSINOPHILS # (AUTO) 0.1 10^3/uL (0.0-0.3); EOSINOPHILS % (AUTO) 2 % (0-10); HEMATOCRIT 33 % (40-54); HEMOGLOBIN 10.4 G/DL (13.3-17.7); LYMPHOCYTES # (AUTO) 1.4 X 10^3 (1.0-4.0); LYMPHOCYTES % (AUTO) 21 % (12-44); MEAN CORPUSCULAR HEMOGLOBIN 29 PG (25-34); MEAN CORPUSCULAR HGB CONC 32 G/DL (32-36); MEAN CORPUSCULAR VOLUME 91 FL (80-99); MEAN PLATELET VOLUME 8.4 FL (7.4-10.4); MONOCYTES # (AUTO) 0.6 X 10^3 (0.0-1.0); MONOCYTES % (AUTO) 10 % (0-12); NEUTROPHILS # (AUTO) 4.4 X 10^3 (1.8-7.8); NEUTROPHILS % (AUTO) 66 % (42-75); PLATELET COUNT 321 10^3/uL (130-400); WHITE BLOOD COUNT 6.7 10^3/uL (4.3-11.0)
[2020-08-11 10:21] LABS: BAND NEUTROPHILS 20 %; NEUTROPHILS % (MANUAL) 30 %
[2020-08-11 10:22] LABS: ANISOCYTOSIS SLIGHT; ATYPICAL LYMPHOCYTES 2 %; EOSINOPHILS % (MANUAL) 1 %; LYMPHOCYTES % (MANUAL) 24 %; METAMYELOCYTES % 5 %; MONOCYTES % (MANUAL) 16 %; MYELOCYTES % 2 %; NUCLEATED RED BLOOD CELLS 2
[2020-08-11 15:18] VITALS: BP 150/94
--- NOTE | 2020-08-11 16:45 | Progress Note ---
Subjective Date Seen by a Provider: Aug 11, 2020 Time Seen by a Provider: 15:00 Subjective/Events-last exam doing well. wound granulating in well. no new redness/erythema. Objective Exam Vital Signs Date Time Temp Pulse Resp B/P (MAP) Pulse Ox O2 Delivery O2 Flow Rate FiO2 08/11/20 15:18 36.5 65 18 150/94 (112) 97 Room Air 08/11/20 08:40 Room Air 08/11/20 08:00 36.1 63 18 118/67 (84) 98 Room Air 08/11/20 00:00 36.8 56 18 138/88 (105) 97 Room Air 08/10/20 20:00 Room Air I & O 08/11/20 07:00 Intake Total 3370 ml Balance 3370 ml Capillary Refill : Less Than 3 SecondsLess Than 3 Seconds General Appearance: No Apparent Distress HEENT: PERRL/EOMI Neck: Full Range of Motion Respiratory: Chest Non Tender, Lungs Clear Cardiovascular: Regular Rate, Rhythm Gastrointestinal: normal bowel sounds, non tender, soft Extremity: Normal Capillary Refill Neurologic/Psychiatric: Alert, Oriented x3 Skin: Other (right hand wound granulating in well, no redness/erythema) Results Lab Laboratory Tests 08/11/20 09:35: White Blood Count 6.7, Red Blood Count 3.62L, Hemoglobin 10.4L, Hematocrit 33L, Mean Corpuscular Volume 91, Mean Corpuscular Hemoglobin 29, Mean Corpuscular Hemoglobin Concent 32, Red Cell Distribution Width 13.7, Platelet Count 321, Mean Platelet Volume 8.4, Neutrophils (%) (Auto) 66, Lymphocytes (%) (Auto) 21, Monocytes (%) (Auto) 10, Eosinophils (%) (Auto) 2, Basophils (%) (Auto) 2, Neutrophils # (Auto) 4.4, Lymphocytes # (Auto) 1.4, Monocytes # (Auto) 0.6, Eosinophils # (Auto) 0.1, Basophils # (Auto) 0.1, Neutrophils % (Manual) 30, Lymphocytes % (Manual) 24, Monocytes % (Manual) 16, Eosinophils % (Manual) 1, Metamyelocytes % 5, Myelocytes % 2, Band Neutrophils 20, Nucleated Red Blood Cells 2, Atypical Lymphocytes 2, Anisocytosis SLIGHT Assessment/Plan Assessment/Plan Assess & Plan/Chief Complaint cellulitis/skin necrosis s/p I&D. neutropenic from cosyntyx. will be on IV abx until . continue dressing change BID. f/u in office in 1 week. Clinical Quality Measures DVT/VTE Risk/Contraindication: Risk Factor Score Per Nursin RFS Level Per Nursing on Admit: 1=Low/No VTE PPX GRACE COOPER MD Aug 11, 2020 16:45
[2020-08-12] VITALS: BP 155/99
[2020-08-12] MEDS: HYDROcodone/APAP 7.5 MG/325 MG (LORTAB, LORCET PLUS) TABLET PO PRN
[2020-08-12] MEDS: PIPERACILLIN/TAZO 4.5 GM/NS 100 ML IV SCH ×2 (04:55)
[2020-08-12 05:23] LABS: BASOPHILS # (AUTO) 0.1 10^3/uL (0.0-0.1); BASOPHILS % (AUTO) 1 % (0-10); EOSINOPHILS # (AUTO) 0.1 10^3/uL (0.0-0.3); EOSINOPHILS % (AUTO) 1 % (0-10); HEMATOCRIT 32 % (40-54); HEMOGLOBIN 10.3 G/DL (13.3-17.7); LYMPHOCYTES # (AUTO) 1.8 X 10^3 (1.0-4.0); LYMPHOCYTES % (AUTO) 23 % (12-44); MEAN CORPUSCULAR HEMOGLOBIN 29 PG (25-34); MEAN CORPUSCULAR HGB CONC 32 G/DL (32-36); MEAN CORPUSCULAR VOLUME 90 FL (80-99); MEAN PLATELET VOLUME 8.7 FL (7.4-10.4); MONOCYTES # (AUTO) 0.7 X 10^3 (0.0-1.0); MONOCYTES % (AUTO) 8 % (0-12); NEUTROPHILS # (AUTO) 5.4 X 10^3 (1.8-7.8); NEUTROPHILS % (AUTO) 67 % (42-75); PLATELET COUNT 327 10^3/uL (130-400)
[2020-08-12] MEDS: LEVOTHYROXINE 100 MCG (LEVOTHROID) TAB PO SCH (05:43)
[2020-08-12 08:00] VITALS: BP 138/85
[2020-08-12] MEDS: INDOMETHACIN 50 MG CAPSULE PO SCH (08:40)
[2020-08-12] MEDS: ESCITALOPRAM 10 MG TAB PO SCH (08:40)
--- NOTE | 2020-08-12 09:01 | NUR ---
Met with pt and concening any continued care needs. 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 They recently adopted 4 foster children and they have a 16 month old son of their own. Pt feels much improved and is hoping for discharge home today. Offered to assist with any post discharge needs.
[2020-08-12] MEDS: MICONAZOLE 2% POWDER (DESENEX AF) 90 GM TOP SCH (09:09)
[2020-08-12] MEDS ORDERED: AMOX-358 PO (10:16)
--- NOTE | 2020-08-12 10:29 | Discharge Summary ---
Diagnosis/Chief Complaint Date of Admission Aug 06, 2020 at 16:14 Date of Discharge Discharge Date: Aug 12, 2020 Admission Diagnosis 1. Right upper extremity cellulitis with ascending lymphangitis. 2. Failure of outpatient antibiotics. 3. Psoriasis with psoriatic arthritis continue indomethacin and sulfasalazine. Patient was scheduled for Cosentyx earlier this week but medication was held due to infection. Primary Care Bryant Alvarez MD Discharge Diagnosis (1) Right arm cellulitis Status: Acute Discharge Summary Discharge Physical Exam Allergies: Coded Allergies: No Known Drug Allergies (Unverified , 08/06/20) Vitals & I&Os Vital Signs Date Time Temp Pulse Resp B/P (MAP) Pulse Ox O2 Delivery O2 Flow Rate FiO2 08/12/20 08:00 36.3 56 16 138/85 (102) 98 Room Air General Appearance: No Apparent Distress Respiratory: Chest Non Tender, Lungs Clear, Normal Breath Sounds, No Accessory Muscle Use, No Respiratory Distress Cardiovascular: Regular Rate, Rhythm, No Edema, No Gallop, No JVD, No Murmur, Normal Peripheral Pulses Extremity: Other (very faint area of erythema mid forearm only mild swelling persists but improved minimal axillary tenderness no definitive adenopathy note d. Wound per surgery site of I&D back of the right hand reportedly granulating no evidence for infection.) Hospital Course patient initially noted a pustular area on the back of his right hand he been working in the yard the day before was not aware of any potential insect bites. [place] 72 hours rosie or as well. He was seen in the office where he had some forearm erythema and swelling around the pustule on Tuesday. He was started on doxycycline but had chills and not feeling well Tuesday and return with red streaks going up the forearm and upper arm and fullness and tenderness in the axilla. He was subsequent admitted for treatment and a culture was obtained. Culture grew out beta hemolytic strep. Considering ocean issues vibrio was in the differential. He was initially started on Zosyn and vancomycin. On day 2 of his hospital stay as I recall we got the culture report back of Streptococcus pyogenous from a wound swab and he was switched to Ancef. The following day there is little worsening of forearm erythema he wasn't feeling as well so he was put back on Zosyn. On admission aggravating his infection responding response was significant neutropenia with a total white count of 0.9 and ANC less than 100. Hematology was consult did and felt that it was more likely infection related than the sulfasalazine that he had been on for psoriasis with psoriatic arthritis. The patient was also on cosyntix which was held. He did undergo incision and drainage but there was nothing apparently a purulence noted and the culture was not available from post incision and drainage per Dr. COOPER. Now the patient was feeling well except for some intermittent headaches. He has history of migraines. Neck was supple at the time of discharge patient was afebrile and his white count was up to 8000 with a hemoglobin in the mid 10 range and a platelet count a little over 300,000. He will follow-up with us on Tuesday and is discharged on Augmentin 875 mg twice a day after meals. He will continue normal saline wet-to-dry dressings in the interim. He did note benefits and art hralgia when he was on doxycycline in his left hand. He missed his first rheumatology visits due to this hospital stay and has been rescheduled. We may need to consider adding doxycycline for anti-inflammatory effect and addition to indomethacin in the interim as his appointment could not be rescheduled until later August. Labs (last 24 hrs) Laboratory Tests 08/12/20 04:55: White Blood Count 8.0, Red Blood Count 3.55L, Hemoglobin 10.3L, Hematocrit 32L, Mean Corpuscular Volume 90, Mean Corpuscular Hemoglobin 29, Mean Corpuscular Hemoglobin Concent 32, Red Cell Distribution Width 13.2, Platelet Count 327, Mean Platelet Volume 8.7, Neutrophils (%) (Auto) 67, Lymphocytes (%) (Auto) 23, Monocytes (%) (Auto) 8, Eosinophils (%) (Auto) 1, Basophils (%) (Auto) 1, Neutrophils # (Auto) 5.4, Lymphocytes # (Auto) 1.8, Monocytes # (Auto) 0.7, Eosinophils # (Auto) 0.1, Basophils # (Auto) 0.1 Patient resulted labs reviewed. Pending Labs Laboratory Tests 08/12/20 04:55: White Blood Count 8.0, Red Blood Count 3.55, Hemoglobin 10.3, Hematocrit 32, Mean Corpuscular Volume 90, Mean Corpuscular Hemoglobin 29, Mean Corpuscular Hemoglobin Concent 32, Red Cell Distribution Width 13.2, Platelet Count 327, Mean Platelet Volume 8.7, Neutrophils (%) (Auto) 67, Lymphocytes (%) (Auto) 23, Monocytes (%) (Auto) 8, Eosinophils (%) (Auto) 1, Basophils (%) (Auto) 1, Neutrophils # (Auto) 5.4, Lymphocytes # (Auto) 1.8, Monocytes # (Auto) 0.7, Eosinophils # (Auto) 0.1, Basophils # (Auto) 0.1 Discussion & Recommendations Discharge Planning: >30 minutes discharge planning Discharge Home Medications: Active Scripts Active Augmentin 875-125 Tablet (Amoxicillin/Potassium Clav) 1 Each Tablet 1 Each PO BID 5 Days Reported Flonase Allergy Relief (Fluticasone Propionate) 9.9 Ml [place].susp 1 [place] NS DAILY 1 SPRAY EACH NARE DAILY Zyrtec (Cetirizine HCl) 10 Mg Tablet 10 Mg PO DAILY Cosentyx Pen (2 Pens) (Secukinumab) 150 Mg/1 Ml Pen.injctr 300 Mg SC MONTHLY USES 2 (150MG) PENS Indomethacin 50 Mg Capsule 50 Mg PO TID Escitalopram Oxalate 10 Mg Tablet 10 Mg PO DAILY Mupirocin 22 Gm Oint...g. 1 Applic TOP BID USE FOR 7 DAYS STARTING 08-05-2020 Doxycycline Hyclate 100 Mg Capsule 100 Mg PO BID FILLED 08-05-2020 #20/10 DAY SUPPLY Levothyroxine Sodium 100 Mcg Tablet 100 Mcg PO DAILY Sulfasalazine 500 Mg Tablet 1,000 Mg PO BID TAKES 2 (500MG) TABS Instructions to patient/family Please see electronic discharge instructions given to patient. Clinical Quality Measures DVT/VTE Risk/Contraindication: Risk Factor Score Per Nursin RFS Level Per Nursing on Admit: 1=Low/No VTE PPX BRYANT ALVAREZ MD Aug 12, 2020 10:29
[2020-08-12 11:00] VITALS: BP 138/85
--- NOTE | 2020-08-18 08:39 | Physician Query Clarification ---
PQ-Conflicting Diagnosis Admission/Discharge Admission Date: Aug 06, 2020 at 16:14 Discharge Date: Aug 12, 2020 at 11:00 Dr. Alvarez, The medical record reflects the following clinical scenario: History/Risk Factors: Cellulitis/abscess rt hand, psoriasis with psoriatic arthritis Clinical Findings: rt hand redness, erythema, fluctuance, Necrotic subcutaneous tissue with a significant amount of edema, small abscess. Treatment: IV Piperacillin, IV Vancomycin Question: Do you agree with the impression of the brown recluse spider bite per Dr. Reyes. Please document a response in Progress Note or Discharge Summary. 1. Yes 2. No 3. Other, with explanation of clinical findings 4. Clinically undetermined, no explanation for clinical findings. PHYSICIAN RESPONSE Do you agree w/Consulting Dx?: No Explanation of clincal finding cellulitis with ascending lymphangitis due to streptococcus pyogenes. Please remember a lack of response to the above will prompt a phone page by [facility] staff. In responding to this query, please exercise your independent professional judgment. The purpose of this communication is to more accurately reflect the complexity of your patients condition. The fact that a question is asked does not imply that any particular answer is desired or expected. Thank you for your timely response to this clarification. Requestors name: Dick THIS PHYSICIAN QUERY FORM IS A PERMANENT PART OF THE MEDICAL RECORD DICK STYLES Aug 18, 2020 08:39 BRYANT ALVAREZ MD Aug 19, 2020 10:49
== END 2020-08-12 11:00 | disposition home or self-care (01) | DRG 580 ==
LOC: 4TH 16:14
PROVIDERS: ADMIT Internal Medicine; ATTEND Internal Medicine
PROC: 0J9J0ZZ Drainage of Right Hand Subcutaneous Tissue and Fascia, Open Approach (ICD-10-PCS; principal; 2020-08-08)
DX: L02.511 Cutaneous abscess of right hand (principal); L03.113 Cellulitis of right upper limb; D70.2 Other drug-induced agranulocytosis; L40.50 Arthropathic psoriasis, unspecified; L40.0 Psoriasis vulgaris; J30.2 Other seasonal allergic rhinitis; F41.9 Anxiety disorder, unspecified; E03.9 Hypothyroidism, unspecified; D64.9 Anemia, unspecified; B95.0 Streptococcus, group A, as the cause of diseases classified elsewhere; T45.1X5A Adverse effect of antineoplastic and immunosuppressive drugs, initial encounter
CPT/HCPCS: 36415; 80048; 80202; 85007; 85025; 85027

== ENCOUNTER → 2020-12-30 | Outpatient (CLI) | payer OTHER ==
[~2020-12-30] VITALS: Ht 185 cm; Wt 100.0 kg
[~2020-12-30] MED LIST: AMOX-358 PO; BAMLANIVIMAB (NON FORM) 700 MG in NS (IVPB) 250 ML IV ONE; CETI10TA49 PO; DOXY100C2 PO; EPINEPHrine INJECTION 1 MG/ML AMP IM PRN; ESCI10TA64 PO; ESCI5TAB25 PO; FLUT9.9S NS; INDO20CA4 PO; INDO50CA82 PO; LEVO100T7 PO; MUPI22OI2 TOP; SECU150P SC; SLF500T PO; diphenhydrAMINE 50 MG/ML INJ (BENADRYL) IV PRN
[2020-12-30 13:03] VITALS: BP 131/78
[2020-12-30 15:09] VITALS: BP 139/76
== END ==
LOC: INFUSION 13:04
PROVIDERS: ATTEND Nurse Practitioner Family
DX: U07.1 COVID-19 (principal)